=== PATIENT | male | born 1970 | race Caucasian/White ===

== ENCOUNTER 2019-01-13 12:32 | Inpatient (IN) ==
[2019-01-13 13:01] LABS: Basophils % 0.3 % (0.0-0.8); Eosinophils # 0.1 10*3/uL (0.0-0.87); Eosinophils % 0.7 % (0.00-10.9); Hematocrit 40.4 VOL% (42.0-52.0); Hemoglobin 13.6 GM/DL (14.0-18.0); Immature Granulocytes % 0.4 %; Immature Granulocytes Absolute 0.03 #; Lymphocytes # 2.6 10*3/uL (1.4-4.0); Lymphocytes % 34.4 % (21.2-54.2); Mean Corpuscular HGB Conc 33.7 GM/DL (32-36); Mean Corpuscular Volume 87.1 FL (87-102); Mean Platelet Volume 8.9 FL (9.6-12.0); Monocytes % 10.9 % (1.7-12.7); Neutrophils % 53.3 % (38.7-73.9); Platelet Count 238 T/CUMM (130-400); Red Blood Count 4.64 MC/CUMM (3.8-5.5); Red Cell Distribution Width 13.2 % (9.3-17.3); White Blood Count 7.6 T/CUMM (4-12)
[2019-01-13 13:15] LABS: PT Patient Result 10.5 SECS (9.6-12.2); Partial Thromboplastin Time 30.1 SECS (20.8-36.0)
[2019-01-13] MEDS ORDERED: ASPIRIN 325 MG TABLET PO STA (13:18)
[2019-01-13] MEDS ORDERED: MORPHINE 4 MG/1 ML VIAL IV STA ×2 (13:18→16:03)
[2019-01-13] MEDS ORDERED: ONDANSETRON 4 MG/2 ML VIAL IV STA (13:18)
[2019-01-13] MEDS ORDERED: METOPROLOL TARTRATE 5 MG/5 ML VIAL IV STA (13:18)
[2019-01-13] MEDS ORDERED: NITROGLYCERIN 2% OINT 1 INCH/GM PACK TOP STA (13:18)
[2019-01-13] MEDS ORDERED: ENOXAPARIN 100 MG/ML SYRINGE SUBCUT STA (13:18)
[2019-01-13 13:19] LABS: Albumin 4.3 G/DL (3.4-5.0); Bilirubin,Total 0.9 MG/DL (0.2-1.0); Calcium 9.3 MG/DL (8.5-10.1); Osmolality,Calculated 280.3 MOS/KG (273-304); Total Protein 8.2 G/DL (6.4-8.3)
[2019-01-13 14:32] LABS: PT Patient Result 10.5 SECS (9.6-12.2)
[2019-01-13] MEDS ORDERED: LORazepam 2 MG/1 ML VIAL IV STA (15:01)
[2019-01-13] MEDS ORDERED: hydrALAZINE 20 MG/1 ML VIAL IV PRN (16:26)
[2019-01-13] MEDS ORDERED: ALUM/MAG/SIMETH/LIDO VISC 1:1 30 ML BOTTLE PO STA ×2 (16:27→18:11)
[2019-01-13] MEDS ORDERED: ACETAMINOPHEN 325 MG TABLET PO PRN (16:27)
[2019-01-13] MEDS: oxyCODONE IR 5 MG TABLET PO PRN (18:16)
[2019-01-13] MEDS: ONDANSETRON 4 MG/2 ML VIAL IV PRN (18:26)
[2019-01-13] MEDS ORDERED: tiZANidine 4 MG TABLET PO SCH (21:00)
[2019-01-13] MEDS ORDERED: ENOXAPARIN 40 MG/0.4 ML SYRINGE SUBCUT SCH (21:00)
[2019-01-13] MEDS: METOPROLOL TARTRATE 25 MG TABLET PO SCH (21:21)
[2019-01-13] MEDS: PREGABALIN 100 MG CAPSULE PO SCH (21:21)
[2019-01-13] MEDS: NITROGLYCERIN 2% OINT 1 INCH/GM PACK TOP SCH (21:22)
[2019-01-13] MEDS: MORPHINE 4 MG/1 ML VIAL IV PRN (21:22)
[2019-01-13] MEDS: LORazepam 2 MG/1 ML VIAL IV PRN (23:17)
[2019-01-13 23:37] LABS: Apearance,Urine CLEAR (Clear); Bilirubin,Urine Negative (Negative); Blood, Urine Small mg/dL (Negative); Glucose,Urine (UA) Negative (Negative); Ketones,Urine Negative (Negative); Nitrite,Urine Negative (Negative); Protein,Urine Negative; RBC,Urine 3 /HPF (0-4); Urine Color Yellow (Yellow); Urine Specific Gravity 1.053 (1.001-1.035); Urine Urobilinogen < 2.0 EU/DL (0.2-1.0); WBC,Urine <1 /HPF (0-6)
[2019-01-13 23:57] LABS: Barbiturates Screen,Urine Negative (Negative); Benzodiazepines Screen,Urine Negative (Negative); Cannabinoid Screen,Urine Negative (Negative); Opiate Screen,Urine Positive (Negative); Phencyclidine Screen,Urine Negative (Negative)
[2019-01-14 01:07] LABS: Troponin I < 0.015 NG/ML (0.00-0.045)
[2019-01-14] MEDS: oxyCODONE IR 5 MG TABLET PO PRN ×3 (04:10→17:12)
[2019-01-14 04:41] LABS: Basophils % 0.5 % (0.0-0.8); Eosinophils # 0.2 10*3/uL (0.0-0.87); Eosinophils % 3.2 % (0.00-10.9); Hematocrit 37.6 VOL% (42.0-52.0); Hemoglobin 12.4 GM/DL (14.0-18.0); Immature Granulocytes % 0.3 %; Immature Granulocytes Absolute 0.02 #; Lymphocytes # 2.5 10*3/uL (1.4-4.0); Lymphocytes % 41.3 % (21.2-54.2); Mean Corpuscular Volume 88.1 FL (87-102); Mean Platelet Volume 9.4 FL (9.6-12.0); Monocytes % 10.3 % (1.7-12.7); Neutrophils % 44.4 % (38.7-73.9); Platelet Count 228 T/CUMM (130-400); Red Blood Count 4.27 MC/CUMM (3.8-5.5); Red Cell Distribution Width 13.3 % (9.3-17.3)
[2019-01-14 05:24] LABS: Albumin 3.6 G/DL (3.4-5.0); Calcium 8.9 MG/DL (8.5-10.1); Osmolality,Calculated 283.3 MOS/KG (273-304); Risk Ratio 5.28; Troponin I < 0.015 NG/ML (0.00-0.045); VLDL CHOLESTEROL 36.8 MG/DL
[2019-01-14] MEDS: MORPHINE 4 MG/1 ML VIAL IV PRN ×2 (07:37→14:01)
[2019-01-14] MEDS ORDERED: SODIUM CHLORIDE 0.9% 500 ML IV ONE (07:42)
[2019-01-14] MEDS: hydroCHLOROthiazide 25 MG TABLET PO SCH ×2 (08:39→12:12)
[2019-01-14] MEDS: METOPROLOL TARTRATE 25 MG TABLET PO SCH ×2 (08:39→12:13)
[2019-01-14] MEDS: ASPIRIN 325 MG TABLET PO SCH ×2 (08:39→12:12)
[2019-01-14] MEDS: PANTOPRAZOLE 40 MG TABLET PO SCH ×2 (08:40→12:13)
[2019-01-14] MEDS: CYANOCOBALAMIN 500 MCG TABLET PO SCH ×2 (08:40→12:12)
[2019-01-14] MEDS: NITROGLYCERIN 2% OINT 1 INCH/GM PACK TOP SCH (08:40)
[2019-01-14] MEDS: PREGABALIN 100 MG CAPSULE PO SCH ×2 (08:40→12:13)
[2019-01-14] MEDS: LISINOPRIL 20 MG TABLET PO SCH ×2 (08:40→12:12)
[2019-01-14] MEDS: LORazepam 2 MG/1 ML VIAL IV PRN ×2 (12:11→17:05)
[2019-01-14] MEDS: ONDANSETRON 4 MG/2 ML VIAL IV PRN ×2 (14:01→17:05)
[2019-01-14 16:01] VITALS: BP 133/85
[2019-01-14] MEDS ORDERED: OMEGA 3 ACID ETHYL ESTERS 1 GM CAPSULE PO SCH (21:00)
[2019-01-14] MEDS ORDERED: ATORVASTATIN 20 MG TABLET PO SCH (21:00)
== END 2019-01-14 18:06 | disposition home or self-care (01) | DRG 880 ==
LOC: N.ED 12:32 → N.EDINP 16:13 → N.4E 16:43
PROVIDERS: ADMIT Internal Medicine; ATTEND Internal Medicine